=== PATIENT | male | born 1985 | race Two or more races ===

== ENCOUNTER 2016-08-19 09:04 | Outpatient (CLI) ==
[2016-08-19 09:29] LABS: BASOPHILS % (AUTO) 0.4 % (0.0-3.0); EOSINOPHILS # (AUTO) 0.1 K/ul (0.0-0.7); HEMATOCRIT 39.3 % (42.0-52.0); HEMOGLOBIN 13.8 g/dl (14.0-18.0); LYMPHOCYTES # (AUTO) 2.4 K/uL (0.60-3.4); LYMPHOCYTES % (AUTO) 48.1 (10.0-50.0); MEAN CORPUSCULAR HEMOGLOBIN 30.7 pg (27.0-31.0); MEAN CORPUSCULAR HGB CONC 35.1 (31.8-35.4); MEAN CORPUSCULAR VOLUME 87.3 fl (80.0-94.0); MONOCYTES # (AUTO) 0.4 K/uL (0.4-2.0); MONOCYTES % (AUTO) 7.8 (0-10); NEUTROPHILS # (AUTO) 2.1 K/ul (2.0-6.9); NEUTROPHILS % (AUTO) 41.7; PLATELET COUNT 168 10^3/uL (140-440); WHITE BLOOD COUNT 5.01 K/ul (4.2-10.2)
[2016-08-19 10:08] LABS: ALBUMIN/GLOBULIN RATIO 1.54; ANION GAP 9.7; BILIRUBIN,TOTAL 0.39 mg/dL (0.00-1.20); BUN/CREATININE RATIO 18.18; CALCIUM 9.1 mg/dL (8.2-10.2); CHOL/HDL RATIO 4.5 (4.5-6.4); CREATININE 0.88 mg/dL (0.60-1.10); POTASSIUM 3.7 mmol/L (3.5-5.1); TOTAL PROTEIN 6.6 g/dL (6.4-8.2)
[2016-08-20 04:11] LABS: TESTOSTERONE 421 ng/dL (348-1197)
== END 2016-08-19 09:05 | disposition home or self-care (01) ==
LOC: LAB 09:04
PROVIDERS: ATTEND Emergency Medicine
DX: L73.9 Follicular disorder, unspecified (principal); F32.1 Major depressive disorder, single episode, moderate; M47.26 Other spondylosis with radiculopathy, lumbar region; R53.83 Other fatigue
CPT/HCPCS: 36415; 80053; 80061; 84403; 84443; 85025

== ENCOUNTER 2017-02-10 13:31 | Outpatient (CLI) ==
[2017-02-10 13:36] LABS: BASOPHILS % (AUTO) 0.6 % (0.0-3.0); EOSINOPHILS # (AUTO) 0.1 K/ul (0.0-0.7); EOSINOPHILS % (AUTO) 1.4 % (0.0-7.0); HEMATOCRIT 43.9 % (42.0-52.0); HEMOGLOBIN 14.8 g/dl (14.0-18.0); IMMATURE GRANULOCYTE % (AUTO) 0.3 % (0.0-5.0); LYMPHOCYTES # (AUTO) 2.7 K/uL (0.60-3.4); LYMPHOCYTES % (AUTO) 41.1 (10.0-50.0); MEAN CORPUSCULAR HEMOGLOBIN 30.1 pg (27.0-31.0); MEAN CORPUSCULAR HGB CONC 33.7 (31.8-35.4); MEAN CORPUSCULAR VOLUME 89.2 fl (80.0-94.0); MONOCYTES # (AUTO) 0.5 K/uL (0.4-2.0); MONOCYTES % (AUTO) 7.4 (0-10); NEUTROPHILS # (AUTO) 3.2 K/ul (2.0-6.9); NEUTROPHILS % (AUTO) 49.2; PLATELET COUNT 245 10^3/uL (140-440); RED BLOOD COUNT 4.92 10^6/ul (4.70-6.10); WHITE BLOOD COUNT 6.52 K/ul (4.2-10.2)
[2017-02-10 19:27] LABS: ALBUMIN 3.8 g/dL (3.4-5.0); ALBUMIN/GLOBULIN RATIO 0.88; ANION GAP 17.4; BILIRUBIN,TOTAL 0.35 mg/dL (0.00-1.20); BUN/CREATININE RATIO 16.84; CALCIUM 10.2 mg/dL (8.2-10.2); CREATININE 0.95 mg/dL (0.60-1.10); POTASSIUM 4.4 mmol/L (3.5-5.1); TOTAL PROTEIN 8.1 g/dL (6.4-8.2)
== END 2017-02-10 13:32 | disposition home or self-care (01) ==
LOC: LAB 13:31
PROVIDERS: ATTEND Emergency Medicine
DX: E78.5 Hyperlipidemia, unspecified (principal); F32.1 Major depressive disorder, single episode, moderate; I10 Essential (primary) hypertension
CPT/HCPCS: 36415; 80053; 80061; 84443; 85025

== ENCOUNTER 2017-02-13 06:14 | Outpatient (CLI) | END 2017-02-13 06:15 | disposition home or self-care (01) | LOC: CAR 06:14 | PROVIDERS: ATTEND Emergency Medicine | DX: E78.5 Hyperlipidemia, unspecified (principal); I10 Essential (primary) hypertension | CPT/HCPCS: 93005; 93010 ==

== ENCOUNTER 2017-05-01 11:00 | Outpatient (RCR) ==
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
--- NOTE | 2017-04-24 15:31 | RS.OPPTDN ---
Subjective Date of Note: 04/24/17 Visit #: 2 Date of Evaluation: 04/22/17 Payer Source: Medicaid Treatment Diagnosis: lumbar pain with radiculopathy Current Subjective/complaints:: Patient says his pain is worse today. Reports he is trying to perform HS stretching at home, but unable to do so due to pain. Patient c/o pain to the low back with radicular symptoms down the L leg and into his L testicle. He denies incontinence. He says he does not go back to the MD until June, but we encouraged him to see if he can return sooner. *Precautions: no bending, lifting, twisting or lifting > 10 lbs. Pain Assessment - Pain Description Pain Location: 09/22, mostly with activity. - Treatment Modality: Electrical Stim Unattended Parameters/Method Applied: IFC @ 21-23 pk volts isolated to the lumbar paraspinals x 23 mins Treatment Area: 10 mins prone, then turned to R sidelying Patient Position: Prone - Heat/Cryotherapy Treatment: Hot Pack (10 mins then remainder cold pack) Interventions - Exercise/Activities/Manual Therapy Exercises/Activities: No therex today due to pain level Manual Therapy: n/a - Charges Timed Code Treatment Minutes: 10 Total Treatment Time: 33 Procedures billed for this date of service:: hp, garth (un) Assessment: Patient experiencing elevated pain today with radiculopathy. Patient was instructed to perform only gentle therex at home as shown at eval. If he were to have any soreness, discontinue. Patient did verbalize improved pain level following treatment today. Patient Education: Education of diagnosis, Body/Joint mechanics, Home Exercise Program, Education of Plan of Care Short Term Goals Goal #1: pt rate pain < 6/10 with activity Goal to be met by: 05/06/17 Goal #2: pt with decreased hamstring tightness BLE. Goal to be met by: 05/06/17 Goal #3: pt able to tolerate standing activity and walking with less pain. Goal to be met by: 05/06/17 Nursing Home Goals Goal #1: pt rate pain <4/10 with activity Goal to be met by: 05/20/17 Goal #2: pt with decreased radicular symptoms with activity Goal to be met by: 05/20/17 Goal #3: pt rate oswestry score <24 Goal to be met by: 05/20/17 Goal #4: pt able to tolerate standing activities/amb to perform community mobility Goal to be met by: 05/20/17 Plan PLAN OF CARE EXPIRES ON:: 05/20/17 ORDER # VISITS AND/OR THROUGH DATE: 05/20/17 PLAN: Continue x 2 more sessions for modalties easing into therex
--- NOTE | 2017-04-28 16:34 | RS.OPPTDN ---
Subjective Date of Note: 04/28/17 Visit #: 3 Date of Evaluation: 04/22/17 Payer Source: Medicaid Treatment Diagnosis: lumbar pain with radiculopathy Current Subjective/complaints:: Patient says his back muscles are more flexible and seem less painful, but pain remains to the L anterior thigh and testicle. *Precautions: no bending, lifting, twisting or lifting > 10 lbs. Pain Assessment - Pain Description Pain Location: low back L thigh and L testicle - Treatment Modality: Electrical Stim Unattended Parameters/Method Applied: IFC @ 19 pk volts x 22 mins to lumbar and sacral area Patient Position: Right Sidelying - Heat/Cryotherapy Treatment: Hot Pack Interventions - Exercise/Activities/Manual Therapy Exercises/Activities: Initiated passive gentle stretching: SKTC, heel cords, piriformis, lower trunk rotation for R. Attempted the L LE SKTC and heel cords , but unable to do HS due to pain. Total minutes of Exercise: 8 Manual Therapy: n/a - Charges Timed Code Treatment Minutes: 8 Total Treatment Time: 30 Procedures billed for this date of service:: hp, estim (un) Assessment: Patient has had decreased lumbar pain and tightness, but remains with L radiculopathy to groin and anterior thigh. He did have temporary relief with modalities. He is unable to mason any stretching other than SKTC beyond 85 degrees and heel cords. Patient's MD to be notified in order to see if Tha can get into his office sooner. Patient Education: Education of diagnosis, Body/Joint mechanics, Education of Plan of Care Short Term Goals Goal #1: pt rate pain < 6/10 with activity Goal to be met by: 05/06/17 Goal #2: pt with decreased hamstring tightness BLE. Goal to be met by: 05/06/17 Goal #3: pt able to tolerate standing activity and walking with less pain. Goal to be met by: 05/06/17 Transportation Supervisor Goals Goal #1: pt rate pain <4/10 with activity Goal to be met by: 05/20/17 Goal #2: pt with decreased radicular symptoms with activity Goal to be met by: 05/20/17 Goal #3: pt rate oswestry score <24 Goal to be met by: 05/20/17 Goal #4: pt able to tolerate standing activities/amb to perform community mobility Goal to be met by: 05/20/17 Plan PLAN OF CARE EXPIRES ON:: 05/20/17 ORDER # VISITS AND/OR THROUGH DATE: 05/20/17 PLAN: Patient's MD to be notified. Patient to continue this week and possibly ease into therex.
[2017-05-01 11:33] VITALS: BMI 35.9
--- NOTE | 2017-05-01 12:00 | RS.CSNOTE ---
PT Case Note Date of Note: 05/01/17 Title of document: Case Note Note: Patient c/o increased pain to the L LE extending to testicle today. He says he had pain to the low back and to the R LE to groin, but since yesterday that has significantly improved and now continues to the L. He demo antalgic gait with facial grimacing and verbalizing severity of pain. He reports he is unsure of what he wants to do, try estim to settle his pain or go to the ER. His MD office was called and notified. Assisted him to our ER.
--- NOTE | 2017-05-01 14:28 | RS.CSNOTE ---
PT Case Note Date of Note: 05/01/17 (0509) Note: Received call from pt regarding when his next appt was scheduled. Notified pt that he needs to be seen by MD before resuming PT. pt stated he did not have the money to go to [place], advised pt to see Dr. Vicente regarding intractable pain that is not decreasing with PT. pt has been unable to tolerate PT due to significant pain. pt verbalized understanding. Will await new orders from .
== END 2017-05-13 ==
PROVIDERS: ATTEND Specialist
DX: Z98.1 Arthrodesis status (principal); M54.5 Low back pain

== ENCOUNTER 2017-05-01 11:26 | Emergency (ER) ==
[2017-05-01 11:33] VITALS: BP 156/117; TEMP 98.1; BMI 35.9
--- NOTE | 2017-05-01 12:08 | ED.PDOC ---
General ED Provider: Dr. MIGUEL A FIGUEROA Chief Complaint: Hip Pain/Injury Stated Complaint: back pain low back Time Seen by Physician: 11:30 (sen with STAFF AT ALL TIMES ) Mode of Arrival: Walk-In Information Source: Patient Exam Limitations: No limitations Primary Care Provider: [facility] Nursing and Triage Documentation Reviewed and Agree: Yes Reviewed sepsis parameters & appropriate labs ordered?: Yes System Inflammatory Response Syndrome: Not Applicable Sepsis Protocol: For patient's 13 years and over: Temp is 96.8 and below OR 101 and greater Pulse >90 BPM Resp >20/minute Acutely Altered Mental Status Are patient's symptoms suggestive of a new infection, such as: -Pneumonia -Skin, Soft Tissue -Endocarditis -UTI -Bone, Joint Infection -Implantable Device -Acute Abdominal Infection -Wound Infection -Meningitis -Blood Stream Catheter Infection -Unknown System Inflammatory Response Syndrome: Not Applicable Musculoskeletal Complaint Exam - Back Pain Complaint/Exam Mechanism of Injury: Reports: No known trauma Onset/Duration: TODAY HISTORY OF CHRONIC LOW BACK PAIN Symptoms Are: Still present Timing: Intermittent Episodes Lasting: Minutes Initial Severity: Mild Current Severity: Mild Location: Reports: Discrete Character: Reports: Aching Aggravating: Reports: None Alleviating: Reports: None Associated Signs and Symptoms: Denies: Swelling, Redness, Bruising, Fever, Weakness, Numbness, Tingling, Abdominal pain, Flank pain, Bladder incontinence, Bowel incontinence, Weight loss, Pain with weight bearing Related History: Reports: Similar episode TAD Risk Factors: Reports: None Cauda Equina Risk Factors: Reports: None Epidural Abcess Risk Factors: Reports: None Related Surgical History: Reports: None Focal Tenderness: No Paraspinal Muscle Tenderness: No Paraspinal Muscle Spasm: No Scoliosis: No Lordosis: No Kyphosis: No SLR Test: Right Negative, Left Positive Hip Motion Testing Pain: Right Negative, Left Positive Focal Weakness: Present: None Focal Sensory Loss: Present: None Gait: Present: Normal Differential Diagnoses: Strain, Sprain Review of Systems - Review Of Systems Constitutional: Reports: No symptoms Eyes: Reports: No symptoms Ears, Nose, Mouth, Throat: Reports: No symptoms Respiratory: Reports: No symptoms Cardiac: Reports: No symptoms GI: Reports: No symptoms : Reports: No symptoms Musculoskeletal: Reports: Back pain Skin: Reports: No symptoms Neurological: Reports: No symptoms Endocrine: Reports: No symptoms Hematologic/Lymphatic: Reports: No symptoms All Other Systems: Reviewed and Negative Past Medical History - Past Medical History Previously Healthy: Yes Endocrine: Reports: None Cardiovascular: Reports: None Respiratory: Reports: None Hematological: Reports: None Gastrointestinal: Reports: None Genitourinary: Reports: None Neuro/Psych: Reports: None Musculoskeletal: Reports: None Cancer: Reports: None - Surgical History General Surgical History: Reports: None - Family History Family History: Reports: None - Social History Smoking Status: Chews tobacco Hx Substance Use: No Alcohol Screening: None - Immunizations Tetanus Shot up to Date: Yes Physical Exam - Physical Exam Appearance: Well-appearing, No pain distress, Well-nourished Eyes: HARSHAD, EOMI, Conjunctiva clear ENT: Ears normal, Nose normal, Oropharynx normal Respiratory: Airway patent, Breath sounds clear, Breath sounds equal, Respirations nonlabored Cardiovascular: RRR, Pulses normal, No rub, No murmur GI/: Soft, Nontender, No masses, Bowel sounds normal, No Organomegaly Musculoskeletal: Limited ROM (LEFT SIDED LOWER EXT ON SLR) Skin: Warm, Dry, Normal color Neurological: Sensation intact, Motor intact, Reflexes intact, Cranial nerves intact, Alert, Oriented Psychiatric: Affect appropriate, Mood appropriate Critical Care Note - Critical Care Note Total Time (mins): 0 Course - Course Vital Signs: Temp Pulse Resp BP Pulse Ox 05/01/17 11:27 98.1 F 106 H 22 156/117 H 98 Departure - Departure Time of Disposition: 12:08 (Discussed with patient the need to follow-up with PMD. History is negative for any trauma or injury. This is a flare up of chronic pain, as said previously without any injury. Will provide medication for a few days relief until follow-up.) Disposition: HOME SELF-CARE Discharge Problem: Low back pain Qualifiers: Chronicity: chronic Back pain laterality: midline Sciatica presence: with sciatica Sciatica laterality: sciatica of left side Qualified Code(s): M54.42 - Lumbago with sciatica, left side; G89.29 - Other chronic pain; G89.29 - Other chronic pain Instructions: Back Pain (ED), Low Back Strain (ED), Low Back Strain (GEN), Lower Back Exercises (ED) Condition: Good Pt referred to PMD for follow-up: Yes IPMP verified?: Yes Additional Instructions: Please call your Family Physician as soon as possible to schedule a follow-up appointment. Discussed with patient the need to follow up with PMD. Prescriptions: Hydrocodone/Acetaminophen [[place] 10-325 Tablet] 1 each PO Q8HR #14 tablet Allergies/Adverse Reactions: Allergies No Known Allergies Allergy (Unverified 07/16/16 09:16) Home Medications: Ambulatory Orders Cyclobenzaprine HCl [Flexeril] 10 mg PO BID 05/01/17 Gabapentin 300 mg PO TID 05/01/17 Hydrocodone/Acetaminophen [[place] 10-325 Tablet] 1 each PO Q8HR #14 tablet Meloxicam [Mobic] 15 mg PO DAILY 05/01/17
== END 2017-05-01 12:20 | disposition home or self-care (01) ==
LOC: ED 11:26
DX: M54.42 Lumbago with sciatica, left side (principal); G89.29 Other chronic pain; Z72.0 Tobacco use
CPT/HCPCS: 99282

== ENCOUNTER 2017-06-29 15:00 | Outpatient (RCR) ==
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
--- NOTE | 2017-06-23 16:17 | RS.OPPTDN ---
Subjective Date of Note: 06/23/17 Visit #: 2 Date of Evaluation: 06/18/17 Payer Source: Medicaid Treatment Diagnosis: lumbar pain with radiculopathy Current Subjective/complaints:: Reports the L low back bothers him more than the R low back generally. *Precautions: no bending, lifting, twisting or lifting > 10 lbs. Pain Assessment - Pain Description Pain Description: Radiating, Aching, Chronic Current Pain Intensity: 10 - Treatment Modality: Electrical Stim Unattended Parameters/Method Applied: 20 mins. IFC @ 15 v,patient in R sidelying. Patient Position: Right Sidelying (concurrent with e - stim) - Heat/Cryotherapy Treatment: Hot Pack (20 mins. ) Interventions - Exercise/Activities/Manual Therapy Exercises/Activities: Gentle stretching to hamstring, knee to chest and double knee to chest, pelvic tilts.90/90 hamstring stretches ,pelvic tilts. Total minutes of Exercise: 20 Manual Therapy: n/a Total minutes of Manual Therapy: 0 HOME EXERCISE PROGRAM: pt given written HEP including trunk rotation, knee to chest, double knee to chest, pelvic tilt, hamstring stretch, piriformis stretch. - Charges Timed Code Treatment Minutes: 40 Total Treatment Time: 40 Procedures billed for this date of service:: hp,e - stim , exercise Assessment: Patient has moderate hamstring tightness bilaterally ,with the L side tightness > R.He has one episode of a muscl cramp in the R hamstring group during stretches.He has increased pain with L SLR actively or with assist today.We discussed to focus on stretching more than strengthening at this current time ,also to avod exercises that elicit back pain.He has good understanding of the difference in stretch discomfort ,as opposed to pain due to degeneration in the lumbar spine. Patient Education: Education of diagnosis, Body/Joint mechanics, Home Exercise Program, Home Safety, Activity Modification, Education of Plan of Care Short Term Goals Goal #1: pt rate pain < 6/10 with activity Goal to be met by: 07/02/17 Goal #2: pt with decreased hamstring tightness equal BLE Goal to be met by: 07/02/17 Goal #3: pt able to tolerate increased amb/household activities with decreased pain Goal to be met by: 07/02/17 Custodial Goals Goal #1: pt rate pain <4/10 with activity Goal to be met by: 07/16/17 Goal #2: pt with no radicular symptoms LLE Goal to be met by: 07/16/17 Goal #3: pt rate oswestry score <28 Goal to be met by: 07/16/17 Goal #4: pt able to tolerate standing activities/amb to perform community mobility Goal to be met by: 07/16/17 Plan PLAN OF CARE EXPIRES ON:: 07/16/17 ORDER # VISITS AND/OR THROUGH DATE: 07/16/17 PLAN: Continue PT to educate patient in proper HEP for back care ,reduce pain.
--- NOTE | 2017-06-29 16:32 | RS.OPPTDN ---
Subjective Date of Note: 06/29/17 Visit #: 3 Date of Evaluation: 06/18/17 Payer Source: Medicaid Treatment Diagnosis: lumbar pain with radiculopathy Current Subjective/complaints:: Patient reports relief for the remainder of the day after the last session.Today the L sciatica is radiating into the entire LE. *Precautions: no bending, lifting, twisting or lifting > 10 lbs. Pain Assessment - Pain Description Pain Location: lumbar /L hip and L LE Pain Description: Radiating, Aching Current Pain Intensity: 5-6/10 - Treatment Modality: Electrical Stim Unattended Parameters/Method Applied: 20 mins. high volt,both channels @155 pv to lumbar and L hip . Patient Position: Right Sidelying - Heat/Cryotherapy Treatment: Hot Pack (concurrent with e-stim) Interventions - Exercise/Activities/Manual Therapy Exercises/Activities: 20 mins. Gentle stretching to hamstring, knee to chest and double knee to chest, pelvic tilts.90/90 hamstring stretches piriformis stretches. Total minutes of Exercise: 20 Manual Therapy: n/a Total minutes of Manual Therapy: 0 HOME EXERCISE PROGRAM: pt given written HEP including trunk rotation, knee to chest, double knee to chest, pelvic tilt, hamstring stretch, piriformis stretch. - Charges Timed Code Treatment Minutes: 40 Total Treatment Time: 40 Procedures billed for this date of service:: hp,e-stim,ex 1 Assessment: Patient has increased L lumbar and hip pain after L piriformis stretches ,due to moderate tightness present.He also has bilateral hamstring tightness present.The R LE extensibility is easier to achieve,with less pain , compared to the L LE. Patient Education: Education of diagnosis, Body/Joint mechanics, Home Exercise Program, Home Safety, Activity Modification, Education of Plan of Care Short Term Goals Goal #1: pt rate pain < 6/10 with activity Goal to be met by: 07/02/17 Goal #2: pt with decreased hamstring tightness equal BLE Goal to be met by: 07/02/17 (better on R ,same on L LE) Progress towards Goal:: Progressing Goal #3: pt able to tolerate increased amb/household activities with decreased pain Goal to be met by: 07/02/17 Senior Care Goals Goal #1: pt rate pain <4/10 with activity Goal to be met by: 07/16/17 Goal #2: pt with no radicular symptoms LLE Goal to be met by: 07/16/17 Goal #3: pt rate oswestry score <28 Goal to be met by: 07/16/17 Goal #4: pt able to tolerate standing activities/amb to perform community mobility Goal to be met by: 07/16/17 Plan PLAN OF CARE EXPIRES ON:: 07/16/17 ORDER # VISITS AND/OR THROUGH DATE: 07/16/17 PLAN: Cont. PT to decrease LBP,improve flexibility in the lumbar for safer ADL, s.
--- NOTE | 2017-07-02 14:46 | RS.QUICKDC ---
Discharge from PT Date of Discharge: 07/02/17 Number of Visits: 3 Reason for Discharge: Patient called clinic today ,reports the PT seems to be elevating the LBP.He requests D/C ,plans to return to [facility] , possible surgery has been discussed previously with his
== END 2017-07-13 23:59 ==
PROVIDERS: ATTEND Emergency Medicine
DX: M47.26 Other spondylosis with radiculopathy, lumbar region (principal)

== ENCOUNTER 2017-09-25 06:31 | Outpatient (CLI) | END 2017-09-25 06:32 | disposition home or self-care (01) | LOC: CAR 06:31 | PROVIDERS: ATTEND Emergency Medicine | DX: E78.5 Hyperlipidemia, unspecified (principal); Z01.818 Encounter for other preprocedural examination; I10 Essential (primary) hypertension; F32.1 Major depressive disorder, single episode, moderate | CPT/HCPCS: 36415; 80053; 80061; 84443; 85025; 93005; 93010 ==

== ENCOUNTER 2018-03-25 08:31 | Outpatient (CLI) ==
--- NOTE | 2018-03-25 09:35 | DI ---
EXAM: Three views of the lumbar spine. History: Lower back pain. Findings: No acute fracture or subluxation of the lumbar spine. Postsurgical hardware seen involvin g the L4 and L5 spinous processes. Mild multilevel disc space narrowing with endplate sclerosis and a few small osteophytes. Impression: 1. No acute osseous abnormality of the lumbar spine. 2. Mild degenerative disc disease
--- NOTE | 2018-03-25 15:57 | MRI ---
EXAM: Lumbar spine MRI with and without contrast. HISTORY: Lumbar pain. Spinal stenosis. Post laminectomy. COMPARISON: Lumbar spine radiographs 03/25/2018. TECHNIQUE: Multiplanar, multisequence MR images were acquired lumbar spine before and after administ ration of intravenous contrast. FINDINGS: Conus medullaris ends at L1-2 and has normal morphology and signal intensity without abnor mal leptomeningeal contrast enhancement. However, there are postoperative changes at L4-5 of bilater al hemilaminectomies, partial medial facetectomies and a posterior intraspinous fusion. There is a g rouping together of the nerve roots at this level in the posterior thecal sac (axial T2 image #31, se jaja [id number]) which raises the possibility of adhesions or arachnoiditis. There is no central canal steno sis. Five non-rib bearing lumbar vertebra are present. There is minor chronic anterior wedging of t he T11-L1 vertebra that may be developmental. The remaining lumbar vertebra are normal in height, in trinsic bone marrow signal and AP alignment. Small marginal osteophytes are present in the lumbar sp ine and there is ventral spondylosis with focal modic type 2 changes anteriorly at T11-12 and L1-2. There is mild endplate irregularity with small chronic Schmorl's nodes from T10-11 through L3-4. At L4-5, there is a posterior disc bulge with endplate osteophytes and there is mild irregularity along the posterior endplates with small chronic Schmorl's nodes and bilateral anterolateral and right post erolateral modic type two endplate changes. At L5-S1, there is mild endplate irregularity. There is disc desiccation at L4-5 and L5-S1 and mild central disc desiccation in the remaining lumbar interve rtebral discs. The partially visualized liver, spleen and kidneys are unremarkable. There are no paravertebral mass es. L1-2: There is a minimal disc bulge that is considered physiologic which minimally narrows the infer ior left neural foramen. In this patient with a developmentally narrow canal, there is mild left levi ral foraminal stenosis. There is no central canal stenosis. L2-3: The intervertebral disc is normal. L3-4: There is a minor disc bulge with marginal osteophytes that is asymmetric to the left. This mi nimally effaces the ventral thecal sac and narrows the inferior left neural foramen. Mild bilateral facet arthropathy and ligamentum flavum hypertrophy is present. There is minor central canal stenosi s and mild left neural foraminal stenosis. AP diameter of the thecal sac is 9.3 mm. L4-5: There is a broad-based posterior bulging of the disc with L4 inferior endplate osteophyte and minor enhancement peripherally. This it is more localized than is typical and may represent a locali zed posterior disc bulge or broad-based residual or recurrent posterior disc protrusion. This efface s the ventral thecal sac and encroaches on the L5 nerve roots bilaterally. There are postoperative b ilateral hemilaminectomy and partial facetectomy and posterior intraspinous fixation changes. Enhanc ing bilateral lateral and dorsal epidural fibrosis is present. There is residual facet arthropathy a nd mild to moderate bilateral neural foraminal stenosis. There is minor central canal stenosis. AP diameter of the thecal sac is 9.3 mm. L5-S1: There is a diffuse spondylotic disc bulge and there are postoperative discectomy, bilateral m edial laminotomy and partial medial facetectomy changes. Enhancing epidural granulation tissue is pr esent which partially surrounds both S1 nerves in the lateral recesses. Residual minor facet arthrop athy is present and there is soft tissue signal along the posterior midline margin of the disc that e xtends from the right lateral recess to the left lateral recess consistent with granulation tissue wh ich abuts the descending S1 nerves. There is tapering of the thecal sac which ends at S1-2. There i s mild bilateral neural foraminal stenosis. IMPRESSION: 1. Postoperative bilateral decompressive hemilaminectomy, partial facetectomy and posterior intraspi nous fixation changes at L4-5 with grouping together of the nerve roots in the posterior thecal sac a t this level. This raises the possibility of arachnoiditis or adhesions. 2. Posterior bulging or broad based disc protrusion at L4-5 encroaches on the L5 nerve roots bilater ally and there is minor spinal stenosis. 3. Post L5-S1 microdiskectomy with bilateral medial laminotomy and partial medial facetectomy change s. No residual or recurrent disc protrusion. 4. Mild lumbar degenerative spondylosis which in this patient with a developmentally narrow canal ca uses minor spinal stenosis at L3-4.
== END 2018-03-25 08:32 | disposition home or self-care (01) ==
LOC: RAD 08:31
PROVIDERS: ATTEND Pain Medicine Interventional Pain Medicine
DX: M51.26 Other intervertebral disc displacement, lumbar region (principal); M51.27 Other intervertebral disc displacement, lumbosacral region; M48.061 Spinal stenosis, lumbar region without neurogenic claudication; M48.07 Spinal stenosis, lumbosacral region; M47.816 Spondylosis without myelopathy or radiculopathy, lumbar region; M47.817 Spondylosis without myelopathy or radiculopathy, lumbosacral region; M96.1 Postlaminectomy syndrome, not elsewhere classified; Z01.812 Encounter for preprocedural laboratory examination
CPT/HCPCS: 36415; 82565

== ENCOUNTER 2018-05-12 07:41 | Outpatient (CLI) | END 2018-05-12 07:42 | disposition home or self-care (01) | LOC: LAB 07:41 | PROVIDERS: ATTEND Nurse Practitioner Family | DX: E78.5 Hyperlipidemia, unspecified (principal); I10 Essential (primary) hypertension; Z00.00 Encounter for general adult medical examination without abnormal findings | CPT/HCPCS: 36415; 80053; 80061; 84443; 85025 ==